=== PATIENT | male | born 1955 | race Caucasian/White ===

== ENCOUNTER → 2016-06-11 | Day surgery (SDC) | payer MEDICARE, BC, OTHER ==
[~2016-06-11] VITALS: Ht 175.3 cm; Wt 86.0 kg
[~2016-06-11] MED LIST: /CELE20CA PO; /HYDR1TAB PO; /WARF2TA PO; AMLO5TAB2 PO; AMOX500T PO; ASPI1TAB24 PO; ASPI81TA21 PO; ASPI81TA7 PO; ATEN25TA PO; BACITRACIN PWD 50,000 UNITS VIAL As Ordered ONE; BACITRACIN PWD 50,000 UNITS VIAL IR ONE; BUPIVACAINE HCL 0.5% 30 ML VIAL As Ordered ONE; BUPIVACAINE HCL 0.5% 30 ML VIAL SC ONE; COUM6TAB PO; DESFLURANE 240 ML INHALANT As Ordered ONE; FLUT50SP; GABA800T PO; KETOROLAC 60 MG/2 ML VIAL (J1885) As Ordered ONE; LIDOCAINE 2% INJ 100 MG/5 ML SDV (FOR ANES.) As Ordered ONE; LIDOCAINE 2% MDV 20 ML VIAL As Ordered ONE; LIDOCAINE 2% MDV 20 ML VIAL SC ONE; LIPI10TA PO; LR 1,000 ML IV SCH; LYRI75CA PO; MICA40TA PO; MICA80TA PO; MIDAZOLAM INJ 2 MG/2 ML VIAL (J2250) As Ordered ONE; NEOSPORIN GU IRRIG 20 ML VIAL As Ordered ONE; NEOSPORIN GU IRRIG 20 ML VIAL IR ONE; ONDANSETRON 4MG/2ML VIAL (J2405) As Ordered ONE; OXYC1TAB23 PO; OXYC5TAB2 PO; PERC7.5T12 PO; PERCOCET 5MG/325MG TAB PO PRN; PRED20TA PO; PRED50TA2 PO; PROPOFOL 200 MG/20 ML VIAL As Ordered ONE; SEVOFLURANE INHAL SOLN 250 ML BTL As Ordered ONE; TRAZ50TA2 PO; TYLE325T5 PO; VIAG100T PO; VOLT1GEL2 TOP; ZANT150T PO; [UNRECOGNIZED DRUG - OTHER] TOP; ceFAZolin SOD 1 GM in D5W MINI-BAG PLUS 50 ML IV ONE; dexameTHASONE 4 MG/ML 1ML VIAL (J1100) As Ordered ONE; dexameTHASONE 4 MG/ML 1ML VIAL (J1100) XX ONE; fentaNYL 100 MCG/2 ML INJECTION (J3010) As Ordered ONE; fentaNYL 100 MCG/2 ML INJECTION (J3010) IV PRN
--- NOTE | 2016-06-11 09:30 | ECGEPIP ---
Stationary ECG Study [facility] Test Date: 2016-06-11 Pat Name: EDENILSON ALVARENGA Department: Room: - Gender: M Globe Tester: JAKY : 1955 Requested By: Luca Pollard Order Number: [id number] Reading MD: Jessica Lobato Measurements Intervals [place] Rate: 61 P: 19 NV: 167 QRS: 18 QRSD: 99 T: -3 QT: 380 QTc: 384 Interpretive Statements SINUS RHYTHM NONSPECIFIC STT-WAVE ABNORMALITY SLIGHTLY MORE PRONOUNCED RATE FASTER C/W 06/13/13 Electronically Signed On 06-11-2016 9:30:35 EST by Jessica Lobato
--- NOTE | 2016-06-11 11:47 | REP ---
Right foot series: Portable exam. Three views. History: Postop. Findings: Three views were obtained through overlying cast material. The patient is status post operative fusion of the first tarsometatarsal articulation with metallic screws and screw plate device. There is a metallic pin in the distal second metatarsal and another metallic pin is seen fusing the second PIP joint. Plantar calcaneal spurring is noted. Signed by Miky Emanuel MD 06/11/2016 12:25 P
[2016-06-11 12:50] VITALS: BP 121/70
--- NOTE | 2016-06-11 16:33 | RO ---
DATE OF PROCEDURE: 06/11/2016 PREPROCEDURE DIAGNOSIS: Hallux valgus deformity right foot, long second metatarsal right foot, hammer toe deformity second toe right foot. POSTPROCEDURE DIAGNOSIS: Hallux valgus deformity right foot, long second metatarsal right foot, hammer toe deformity second toe right foot. PROCEDURE: Lapidis bunionectomy with plate and screw fixation, shortening second metatarsal osteotomy, internal screw fixation, proximal interphalangeal joint fusion with DigiFuse fixation second toe right foot. SURGEON: Dr. Nba Bray SPEECH PATHOLOGY ASSISTANT: None. ANESTHESIA: Local MAC. HEMOSTASIS: Ankle pneumatic tourniquet at 200 mmHg for 2 hours and 1 minute. HARDWARE UTILIZED: Freitas LPS size 0 plate with locking and nonlocking screw configuration 3.5 x 18 locking and a 3.5 x 20 times two and a 3.5 x 24. DESCRIPTION OF PROCEDURE: On 06/11/2016, this 61-year-old white male was taken from his hospital room to the operating room and placed on the operating table in supine position. Following the induction of IV sedation and local and regional anesthesia, the right lower extremity was prepped and draped in the usual aseptic manner. Ankle pneumatic tourniquet was rapidly inflated, the right lower extremity was returned to the operating table, sterile draping was completed and the following procedure was performed: LAPIDUS BUNIONECTOMY WITH PLATE AND SCREW FIXATION RIGHT FOOT: Attention was directed to the patient's right foot where there was noted to be a significant hallux valgus deformity. At this time, an incision was made from the mid surface of the medial cuneiform to just proximal to the interphalangeal joint of the hallux, medial to the extensor tendon. The incision was deepened through subcutaneous tissues and all coursing venous tributaries were identified, underscored, clamped, cut, ligated and electrocoagulated as necessary. Linear capsulotomy was performed in the same plane as the original skin incision, and the capsular and periosteal structures were then dissected free in one continuous layer, dorsally, medially and laterally, thus creating a capsular periosteal-type envelope. Attention was directed into the first intermetatarsal space where dissection was carried down to the level of the fibular sesamoid where the conjoined tendon was sharply released from the fibular sesamoid. Attention was directed to the medial eminence of the first metatarsal where there was noted to be hypertrophied medial eminence, which was osteotomized from distal to proximal, through and through. Attention was then directed to the base of the first metatarsal cuneiform joint where a wedge-shaped piece of bone was removed from the first metatarsal cuneiform joint. The fusion site was then fenestrated with a #2-0 drill bit, and the wound was flushed with copious amounts of dilute bacitracin, neomycin and polymyxin B solution. The first metatarsal fusion site was then temporarily held with a 1.1 wire from the first metatarsal to the medial cuneiform and a stabilization wire from the first to second metatarsal. Intraoperative C-arm imagery revealed good position. A 3.5 x 40 mm screw was then placed across the first metatarsal cuneiform joint giving compression and good position. A size 0 LPS plate was then placed on the medial surface of the foot. Upon tightening of the plate with the appropriate screws, however, there was noting to be some separation of the fusion site. Therefore, the screws were removed, the plate was increased in its contour to allow a more lateral position of the first metatarsal. The previous screw holes were then utilized for the proximal plate. These screws were superior to the original screw holes; therefore, one locking and one nonlocking screw were then placed in the distal hole sites. This formed a stable construct of the first metatarsal cuneiform joint with a good reduction of the IM angle. The wound was flushed with copious amounts of dilute bacitracin, neomycin and polymyxin B solution. Attention was directed towards closure where the capsular and periosteal structures were coapted and maintained using #3-0 Vicryl in a simple interrupted type fashion. Subcutaneous tissues were coapted and maintained using #4-0 Monocryl in a simple interrupted type fashion. Skin incision was coapted and maintained using #4-0 nylon in a simple interrupted and horizontal mattress type fashion. Attention was then directed to the second metatarsal where the following procedure was performed: SHORTENING SECOND METATARSAL OSTEOTOMY WITH INTERNAL SCREW FIXATION 2.5 x 14 mm x 1: Attention was directed to the patient's foot where an incision was made from the proximal interphalangea joint to proximal to the second metatarsal phalangeal joint. The incision was deepened through subcutaneous tissues and all coursing venous tributaries were identified, underscored, clamped, cut, ligated and electrocoagulated as necessary. Exposure was then obtained to the joint and then a Sarah osteotomy was then performed just proximal to the articular cartilage, paralleling the plantar surface of the foot. The bone was shortened approximately 5 mm and fixated with a 2.5 x 14 mm compression screw. Overlying bone was then rongeured and rasped to a smooth contour. The wound was then flushed with copious amounts of dilute bacitracin, neomycin and polymyxin B solution. The following procedure was then performed; PROXIMAL INTERPHALANGEAL JOINT FUSION WITH DIGIFUSE 2.5 x 10 DEGREE ANGLED RIGHT FOOT: The incision over the second toe was then opened and exposed, exposing the extensor tendon. Transverse tenotomy and capsulotomy was then performed and the tensor expansion and mccoy was released. Utilizing a Herron sagittal saw, an osteotomy was then performed of the anatomical neck of the proximal phalanx from dorsal to plantar, medial to lateral, through and through. Cartilage was then removed from the base of the proximal phalanx. Utilizing the standard technique, a 2.5 x 10 degree angled DigiFuse was placed across the fusion site and the fusion site was in good position and alignment. Utilizing a #4-0 braided nylon suture, a two-stranded core repair was made of the extensor tendon. This was then oversewn with #4-0 braided nylon in a simple interrupted type fashion. Skin was coapted and maintained utilizing #4-0 Prolene in a simple interrupted fashion. Attention was directed towards bandaging where a sterile compressive bandage was applied consisting of Adaptic, 4 x 4's, 4 x 4 splints and Kerlix. A [id number] fiberglass cast was then placed with the patient's foot at a right angle to the leg. The patient having apparently tolerated the surgical procedure well was taken from the operating room to the recovery room, vital signs stable, patient afebrile, further monitoring by the anesthesia department. All surgical specimens removed during the operative procedure were sent to Pathology for gross and microscopic examination. Postoperative instructions given upon discharge.
== END | disposition home or self-care (01) ==
LOC: M SDC 06:40
PROVIDERS: ATTEND Podiatrist
DX: M20.11 Hallux valgus (acquired), right foot (principal); M20.41 Other hammer toe(s) (acquired), right foot; M79.671 Pain in right foot; I10 Essential (primary) hypertension; E78.5 Hyperlipidemia, unspecified; M25.511 Pain in right shoulder; M54.9 Dorsalgia, unspecified; Z79.899 Other long term (current) drug therapy; Z79.82 Long term (current) use of aspirin
CPT/HCPCS: 28285; 28297; 28308; 73630; 88300; 93005; 97116; C1776; J0690; J1100; J1885; J2250; J2405; J3010

== ENCOUNTER → 2017-02-08 | Outpatient (CLI) | payer MEDICARE, BC, OTHER ==
[~2017-02-08] MED LIST changes: +ASPI-161 PO; -ASPI1TAB24 PO; -BACITRACIN PWD 50,000 UNITS VIAL As Ordered ONE; -BACITRACIN PWD 50,000 UNITS VIAL IR ONE; -BUPIVACAINE HCL 0.5% 30 ML VIAL As Ordered ONE; -BUPIVACAINE HCL 0.5% 30 ML VIAL SC ONE; -DESFLURANE 240 ML INHALANT As Ordered ONE; -KETOROLAC 60 MG/2 ML VIAL (J1885) As Ordered ONE; -LIDOCAINE 2% INJ 100 MG/5 ML SDV (FOR ANES.) As Ordered ONE; -LIDOCAINE 2% MDV 20 ML VIAL As Ordered ONE; -LIDOCAINE 2% MDV 20 ML VIAL SC ONE; -LR 1,000 ML IV SCH; -MIDAZOLAM INJ 2 MG/2 ML VIAL (J2250) As Ordered ONE; -NEOSPORIN GU IRRIG 20 ML VIAL As Ordered ONE; -NEOSPORIN GU IRRIG 20 ML VIAL IR ONE; -ONDANSETRON 4MG/2ML VIAL (J2405) As Ordered ONE; -PERCOCET 5MG/325MG TAB PO PRN; -PROPOFOL 200 MG/20 ML VIAL As Ordered ONE; -SEVOFLURANE INHAL SOLN 250 ML BTL As Ordered ONE; -ceFAZolin SOD 1 GM in D5W MINI-BAG PLUS 50 ML IV ONE; -dexameTHASONE 4 MG/ML 1ML VIAL (J1100) As Ordered ONE; -dexameTHASONE 4 MG/ML 1ML VIAL (J1100) XX ONE; -fentaNYL 100 MCG/2 ML INJECTION (J3010) As Ordered ONE; -fentaNYL 100 MCG/2 ML INJECTION (J3010) IV PRN
--- NOTE | 2017-02-08 13:45 | REP ---
DUPLEX CAROTID SONOGRAPHY: HISTORY: Dizziness. Hypertension. FINDINGS: Antegrade flow was observed in both vertebral arteries. RIGHT CAROTID: The right common carotid artery shows moderate soft plaquing. There is mild soft plaquing in the carotid bulb. Color flow and spectral Doppler interrogation are unremarkable on the right side. Velocity Chart Right Carotid: PSV EDV Right CCA 102 cm/s Right ICA 78 cm/s 19 cm/s Right ECA 81 cm/s Right ICA/CCA ratio normal 0.8. IMPRESSION: 16-49% category narrowing of the right ICA and bulb. Moderate soft plaquing in the distal CCA. LEFT CAROTID: Left common carotid artery is unremarkable on two-dimensional scanning. Color flow and spectral Doppler interrogation are unremarkable on the left. No significant plaquing is seen in the left carotid bifurcation. Velocity Chart Left Carotid: PSV EDV Left CCA 106 cm/s Left ICA 62 cm/s 20 cm/s Left ECA 98 cm/s Left ICA/CCA ratio normal 0.6. IMPRESSION: 0-15% narrowing in the left proximal ICA. Signed by Miky Emanuel MD 02/08/2017 02:16 P
--- NOTE | 2017-02-08 20:48 | ECHO ---
DATE OF PROCEDURE: 02/08/2017 REFERRING PHYSICIAN: Ti Olivarez Study was performed on 02/08/2017 for hypertension. The patient measures 170 cm and weighs 90 kg. It was an outpatient study. DIMENSIONS: IVS: 1.4 LV: 4.1 LVPW: 1.4 LA: 4.3 Aorta: 3.5 E prime septal: 7.1 cm/s E prime lateral: 6.4 cm/s FINDINGS: The study is of good technical quality. Left ventricle is of normal size and systolic function with estimated ejection fraction (EF) 60-65%. Mild to moderate left ventricular hypertrophy is present. Right ventricle is normal size and systolic function. Left atrium appears at least mildly enlarged. Right atrium is normal. Aortic valve is normal. Mitral valve also appears normal even though minimal amount of mitral annular calcifications is noted. Tricuspid valve appears normal. Pulmonic valve was not well seen. No pericardial effusion is noted. Inferior vena cava was not visualized. Aortic root is normal, aortic arch and abdominal aorta were not well seen. Doppler interrogation reveals no aortic valvular disease. There is trace mitral insufficiency and mild tricuspid insufficiency. Calculated pulmonary artery pressure is in 30s corresponding to mild pulmonary hypertension. Mitral inflow pattern and tissue Doppler imaging of mitral annulus revealed grade 1 diastolic dysfunction. CONCLUSIONS: 1. Study is of acceptable technical quality. 2. Normal left ventricular (LV) size with mild to moderate left ventricular hypertrophy, normal LV systolic function and grade 1 diastolic dysfunction. 3. No significant valvular disease. 4. Unable to estimate central venous pressure but at least mild pulmonary hypertension. COMMENTS: Subacute bacterial endocarditis (SBE) prophylaxis is not recommended. The study is most consistent with hypertensive heart disease. [facility]
== END ==
LOC: M RAD 11:42
PROVIDERS: ATTEND Internal Medicine
DX: R42 Dizziness and giddiness (principal); I10 Essential (primary) hypertension; R55 Syncope and collapse

== ENCOUNTER → 2017-03-29 | Outpatient (CLI) | payer MEDICARE, BC, OTHER ==
--- NOTE | 2017-03-29 16:28 | REP ---
Clinical: Chronic medical renal disease stage III. Technique: Real time valero scale ultrasound examination using curved array transducer. Findings: Bilateral kidneys demonstrate increased renal sinus fat consistent with chronic disease as well as a 4.0 cm simple left upper pole renal cyst. The kidneys are otherwise normal in contour, size, echogenicity without hydronephrosis, nephrolithiasis or mass lesion. Right kidney measures 11.2 x 5.5 x 5.2 cm. Left kidney measures 11.1 x 5.3 x 6.1 cm. The bladder demonstrates mild trabeculated wall without significant wall thickening or mass lesion. Findings are likely secondary to bladder outlet obstruction and enlarged heterogeneous prostate gland is identified measuring 5.1 x 4.9 x 4.9 cm. Impression: 1. A 4 cm simple left upper pole renal cyst. Otherwise relatively unremarkable appearance to the kidneys. 2. Enlarged heterogeneous prostate gland likely causing element of bladder outlet obstruction with a trabeculated pattern to the bladder wall, but no significant wall thickening or mass lesion. Signed by Pedrito Mckeon MD 03/29/2017 04:19 P
== END ==
LOC: M RAD 15:12
PROVIDERS: ATTEND Internal Medicine Nephrology
DX: N18.3 Chronic kidney disease, stage 3 (moderate) (principal); N28.1 Cyst of kidney, acquired; N40.0 Benign prostatic hyperplasia without lower urinary tract symptoms

== ENCOUNTER → 2017-07-19 | Outpatient (REF) | payer MEDICARE, BC, OTHER ==
[2017-07-19 14:05] LABS: BACTERIA, URINE SMALL AMOUNT; HYALINE CAST, URINE NONE SEEN /lpf (0-1); MICROSCOPIC EXAM PERFORMED; RBC, URINE 0-1 /hpf (0-3); SQUAMOUS EPITHELIAL CELL URINE NONE SEEN /hpf (SMALL AMT); WBC, URINE NONE SEEN /hpf (0-3)
[2017-07-19 14:23] LABS: CREATININE,RANDOM URINE 55.4 MG/DL; TOTAL PROTEIN,RANDOM URINE 51.9 MG/DL (0.0-12.0)
[2017-07-19 18:53] LABS: PSA SCREENING 0.91 NG/ML (< 4.0)
== END ==
LOC: M LAB REF 12:58
DX: R80.9 Proteinuria, unspecified (principal)
CPT/HCPCS: 82570

== ENCOUNTER → 2017-11-19 | Outpatient (REF) | payer MEDICARE, BC, OTHER ==
[2017-11-19 13:38] LABS: COMPLEMENT C3 136 MG/DL (90-180); COMPLEMENT C4 23.7 MG/DL (10-40); TOTAL PROTEIN 7.7 GM/DL (6.4-8.2)
[2017-11-19 13:43] LABS: HEPATITIS B SURFACE ANTIBODY NEGATIVE (POSITIVE)
[2017-11-19 13:53] LABS: HEPATITIS B SURFACE ANTIGEN NEGATIVE (NEGATIVE)
[2017-11-19 14:11] LABS: URINE TOTAL PROTEIN 32.6 MG/DL (0-12)
[2017-11-19 14:22] LABS: HEPATITIS C VIRUS ABY INDEX < 0.0 INDEX (<0.8)
[2017-11-19 14:41] LABS: HEPATITIS B CORE ANTIBODY IGM NEGATIVE (NEGATIVE)
[2017-11-23 12:00] LABS: ALBUMIN 4.62 GM/DL (3.29-5.55); ALPHA-1-GLOBULIN % 4.2 % (2.9-4.9); ALPHA-1-GLOBULINS 0.32 GM/DL (0.17-0.41); ALPHA-2-GLOBULINS 0.62 GM/DL (0.42-0.99); ALPHA-2-GLOBULINS % 8.1 % (7.1-11.8); BETA-1-GLOBULINS 0.47 GM/DL (0.28-0.60); BETA-1-GLOBULINS % 6.1 % (4.7-7.2); BETA-2-GLOBULINS 0.41 GM/DL (0.19-0.55); BETA-2-GLOBULINS % 5.3 % (3.2-6.5); GAMMA GLOBULIN % 16.3 % (11.1-18.8); GAMMA GLOBULINS 1.26 GM/DL (0.65-1.58)
[2017-11-24 00:07] LABS: ANCA-ATYPICAL Negative titer (Neg:<1:20); ANTI DOUBLE STRAND-DNA AB <1 IU/mL (0-9); ANTINUCLEAR ANTIBODIES DIRECT Negative (Negative); CYTOPLASMIC NEUTROP AB ANCA-C Negative titer (Neg:<1:20); FREE KAPPA LIGHT CHAINS SERUM 26.7 mg/L (3.3-19.4); FREE LAMBDA LIGHT CHAINS SERUM 29.7 mg/L (5.7-26.3); PERINUCLEAR AB ANCA-P Negative titer (Neg:<1:20)
[2017-11-25 14:19] LABS: UPEP INTERPRETATION NO M-SPIKE NOTED; URINE VOLUME RANDOM ML
== END ==
LOC: M LAB REF 12:51
DX: R80.9 Proteinuria, unspecified (principal)
CPT/HCPCS: 84165

== ENCOUNTER → 2017-11-23 | Outpatient (REF) | payer MEDICARE, BC, OTHER ==
[2017-11-23 13:41] LABS: TOTAL VOLUME, URINE 2900 ML
[2017-11-23 13:56] LABS: CREATININE 24 HOUR, URINE 1244.1 MG/24HR (950-2500); CREATININE, URINE 42.9 MG/DL
== END ==
LOC: M LAB REF 12:55
DX: R80.9 Proteinuria, unspecified (principal)
CPT/HCPCS: 81050

== ENCOUNTER → 2018-06-02 | Outpatient (REF) | payer MEDICARE, BC, OTHER ==
[~2018-06-02] MED LIST changes: -AMLO5TAB2 PO; +AMLO5TAB6 PO; -GABA800T PO; +GABA800T4 PO
[2018-06-02 13:23] LABS: PERCENT SATURATION 28.6 % (19.7-50.0)
== END ==
LOC: M LAB REF 12:50
PROVIDERS: ATTEND Internal Medicine Nephrology
DX: D64.9 Anemia, unspecified (principal)

== ENCOUNTER → 2018-10-06 | Outpatient (REF) | payer MEDICARE, BC, OTHER ==
[~2018-10-06] MED LIST changes: -/CELE20CA PO; -/WARF2TA PO; +CELE1CAP4 PO; +COUM1TAB16 PO; +FLUO15CR TOP; -[UNRECOGNIZED DRUG - OTHER] TOP
[2018-10-06 14:25] LABS: PERCENT SATURATION 26.9 % (19.7-50.0)
== END ==
LOC: M LAB REF 13:28
PROVIDERS: ATTEND Internal Medicine Nephrology
DX: D64.9 Anemia, unspecified (principal)

== ENCOUNTER → 2018-11-24 | Outpatient (REF) | payer MEDICARE, BC, OTHER ==
[2018-11-24 12:17] LABS: ALBUMIN 3.9 GM/DL (3.2-5.2); BILIRUBIN,TOTAL 0.4 MG/DL (0.2-1.0); CALCIUM LEVEL 9.2 MG/DL (8.8-10.2); CHOLESTEROL RISK RATIO 2.731 (<5); CREATININE FOR GFR 1.37 MG/DL (0.70-1.30); GLOMERULAR FILTRATION RATE 55.7 (>49); POTASSIUM SERUM 4.3 MEQ/L (3.5-5.1); TOTAL PROTEIN 7.5 GM/DL (6.4-8.2)
== END ==
LOC: M SFHCCLAY 08:03
PROVIDERS: ATTEND Family Medicine
DX: E78.5 Hyperlipidemia, unspecified (principal); N40.0 Benign prostatic hyperplasia without lower urinary tract symptoms; N18.3 Chronic kidney disease, stage 3 (moderate); I12.9 Hypertensive chronic kidney disease with stage 1 through stage 4 chronic kidney disease, or unspecified chronic kidney disease; Z12.5 Encounter for screening for malignant neoplasm of prostate
CPT/HCPCS: 80053; 80061; G0103

== ENCOUNTER 2019-01-05 06:40 | Day surgery (SDC) | payer MEDICARE, BC, OTHER ==
[~2019-01-05] VITALS: Ht 170.2 cm; Wt 81.6 kg
[2019-01-05] MEDS ORDERED: LIDOCAINE 2% INJ 100 MG/5 ML SDV (FOR ANES.) As Ordered ONE (06:57)
[2019-01-05] MEDS ORDERED: PROPOFOL 200 MG/20 ML VIAL As Ordered ONE (06:57)
[2019-01-05] MEDS ORDERED: NS 1,000 ML IV ONE (07:15)
[2019-01-05 08:08] VITALS: BP 110/66
--- NOTE | 2019-01-05 08:10 | ROOR ---
Patient Name: Portillo Mantilla Procedure Date: 01/05/2019 7:35 AM Date of : 1955 Age: 63 Room: [facility] Gender: Male Note Status: Finalized Procedure: Colonoscopy Indications: Screening for colorectal malignant neoplasm Providers: Maurisio MONTEMAYOR MD Referring MD: Susana GARCIA DO Requesting Provider: Medicines: Monitored Anesthesia Care Complications: No immediate complications. Procedure: Pre-Anesthesia Assessment: - The heart rate, respiratory rate, oxygen saturations, blood pressure, adequacy of pulmonary ventilation, and response to care were monitored throughout the procedure. The Colonoscope was introduced through the anus and advanced to the cecum, identified by appendiceal orifice and ileocecal valve. The colonoscopy was performed without difficulty. The patient tolerated the procedure well. The quality of the bowel preparation was good. Findings: The perianal and digital rectal examinations were normal. Three sessile polyps were found in the ascending colon. The polyps were 4 to 6 mm in size. These polyps were removed with a cold snare. Resection and retrieval were complete. Three semi-pedunculated polyps were found in the sigmoid colon. The polyps were 4 to 9 mm in size. These polyps were removed with a cold snare. Resection and retrieval were complete. To prevent bleeding after the polypectomy, three hemostatic clips were successfully placed. Internal hemorrhoids were found during retroflexion. The hemorrhoids were medium-sized. The exam was otherwise without abnormality on direct and retroflexion views. Impression: - Three 4 to 6 mm polyps in the ascending colon, removed with a cold snare. Resected and retrieved. - Three 4 to 9 mm polyps in the sigmoid colon, removed with a cold snare. Resected and retrieved. Clips were placed. - Internal hemorrhoids. - The examination was otherwise normal on direct and retroflexion views. Recommendation: - Repeat colonoscopy in 3 years for surveillance. - No aspirin, ibuprofen, naproxen, or other non-steroidal anti-inflammatory drugs for 10 days after polyp removal. Maurisio Montemayor MD Maurisio MONTEMAYOR MD 01/05/2019 8:10:01 AM Electronically signed by Maurisio MONTEMAYOR MD Number of Addenda: 0 Note Initiated On: 01/05/2019 7:35 AM Estimated Blood Loss: Estimated blood loss: none.
== END 2019-01-05 08:16 | disposition home or self-care (01) ==
LOC: M OPP 06:40
PROVIDERS: ATTEND Internal Medicine Gastroenterology
DX: Z12.11 Encounter for screening for malignant neoplasm of colon (principal); D12.2 Benign neoplasm of ascending colon; D12.5 Benign neoplasm of sigmoid colon; K64.8 Other hemorrhoids; Z79.82 Long term (current) use of aspirin; Z79.891 Long term (current) use of opiate analgesic; Z79.899 Other long term (current) drug therapy